=== PATIENT | female | born 1940 | race Caucasian/White ===

== ENCOUNTER 2023-03-09 09:22 | Outpatient (CLI) | payer SELFPAY ==
[2023-03-09 09:43] LABS: Basophils % 0.2 %; Eosinophils # 0.1 10^3/uL (0.0-0.8); Eosinophils % 0.5 %; Hematocrit 41.4 % (37.0-47.0); Hemoglobin 13.3 g/dL (11.5-15.3); Lymphocytes # 0.7 10^3/uL (0.8-4.8); Lymphocytes % 5.7 %; Mean Corpuscular HGB Conc 32.1 g/dL (30.0-36.0); Mean Corpuscular Volume 93.2 fl (81-99); Mean Platelet Volume 9.6 fL (7.4-10.4); Monocytes # 0.8 10^3/uL (0.2-0.9); Monocytes % 6.2 %; Neutrophils % 86.7 %; Nucleated Red Blood Cells % 0 %; Platelet Count 539 10^3/cmm (130-400); Red Blood Count 4.44 10^6/uL (4.1-5.3); Red Cell Distribution Width 12.9 % (12.1-15.1); White Blood Count 12.4 10^3/uL (4.0-10.0)
[2023-03-09 10:17] LABS: Estmated Average Glucose 117; Hemoglobin A1C 5.7 % (4.0-6.0)
[2023-03-09 10:39] LABS: 25 Hydroxy Vitamin D 35 ng/mL (30-100); Alanine Aminotransferase 14 U/L (0-33); Albumin Level 3.5 g/dL (3.5-5.2); Alkaline Phosphatase 194 U/L (35-105); Anion Gap 13.4 (5-19); Aspartate Amino Transferase 20 U/L (0-32); Blood Urea Nitrogen 18 mg/dL (8-23); Calcium 8.7 mg/dL (8.5-10.5); Carbon Dioxide 33 mmol/L (22-29); Chloride 91 mmol/L (98-107); Chol HDL Ratio 3.58 mg/dL (0.0-4.40); Cholesterol 161 mg/dL (0-200); Globulin 2.6 g/dL (1.3-4.6); Glucose 153 mg/dL (65-115); HDL Cholesterol 45 mg/dL (60-100); LDL Cholesterol Calculated 92 mg/dL (50-129); LDL HDL Ratio 2.04 RATIO (0.00-3.22); Magnesium 1.7 mg/dL (1.7-2.3); Osmolality Calculated 283 mOsm/kg (285-295); Potassium 3.4 mmol/L (3.5-5.1); Sodium 134 mmol/L (136-145); Thyroid Stimulating Hormone 1.67 uIU/mL (0.27-4.20); Total Bilirubin 0.8 mg/dL (0.15-1.2); Total Protein 6.1 g/dL (6.6-8.7); Triglycerides 121 mg/dL (0-150)
== END 2023-03-09 09:23 | disposition home or self-care (01) ==
LOC: LAB 09:24
PROVIDERS: Visit Provider Family Medicine
DX: I10 Essential (primary) hypertension (principal); D64.9 Anemia, unspecified; E55.9 Vitamin D deficiency, unspecified; E11.9 Type 2 diabetes mellitus without complications; E78.5 Hyperlipidemia, unspecified; Z13.29 Encounter for screening for other suspected endocrine disorder
CPT/HCPCS: 80053; 80061; 82306; 83036; 83735; 84443; 85025

== ENCOUNTER 2023-03-09 13:58 | Emergency (ER) | payer MEDICARE, SELFPAY ==
[2023-03-09 14:12] VITALS: BP 186/75; PULSE 74; RESP 18; TEMP 36.4; O2SAT 97; BMI 20.5
--- NOTE | 2023-03-09 14:13 | XR_ITS ---
WS: [id number] EXAMINATION: XR hip RT 2-3V wo/w pel* [id number] REASON FOR EXAM: fall hip pain, hx of pelvic fracture COMPARISON: None available. ORDER DATE: 03/09/2023 2:13 PM TECHNIQUE: 2 views right hip. X-RAY FINDINGS: There are no fractures or dislocations. Minor osteoarthritis XR/XR hip RT 2-3V wo/w pel* [id number] IMPRESSION: 1. No fractures or dislocations of the right hip. 2. Minor osteoarthritis
--- NOTE | 2023-03-09 14:19 | PC.PHAR ---
pt is [facility] states the pt only takes the medications entered and states the pt had am meds today
--- NOTE | 2023-03-09 14:36 | ED_ITS ---
HPI - Fall General: Chief Complaint: Fall Stated Complaint: rt hip and femur pain post fall Time Seen by Provider: 03/09/23 14:10 History of Present Illness: Presents from alf with a fall she had 2 days ago. Patient complaining of right femur and hip pain. Patient does have a history of a right pelvis fracture. Patient has dementia but is alert and oriented to her name birthday and date. Patient currently rates her pain a 6 out of 10. Patient states she is walking down the [place] her leg gave out and she landed on her right side. Patient denies hitting her head or loss of consciousness. Pain is worse with movement. Review of Systems General: Reports: 10 or more systems reviewed and unremarkable except in HPI and below Physical Exam Const: COMMON NORMALS: no acute distress, average body habitus, no limitations, healthy appearing, alert and well nourished HENMT: COMMON NORMALS: normocephalic, atraumatic, hearing grossly normal bilaterally, external ears normal, Normal external nose present and moist oral mucous membranes HEAD & SCALP: normocephalic and atraumatic NOSE: Normal external nose present EXTERNAL EAR: Yes external ears normal Eye: COMMON NORMALS: Equal, round and reactive pupils present, EOMs intact bilaterally, conjunctivae normal and no scleral icterus CONJUNCTIVA: Yes conjunctivae normal PUPIL: Yes Equal, round and reactive pupils present Neck/C-Spine: COMMON NORMALS: full ROM, no lymphadenopathy, supple, no meningeal signs, no JVD and Thyroid normal THYROID: Thyroid normal Chest: COMMONS NORMALS: normal inspection of the chest and normal palpation of entire chest wall Resp: COMMON NORMALS: normal respiratory effort, No retractions, No use of accessory muscles and clear to auscultation bilaterally AUSCULTATION: clear to auscultation bilaterally Cardio: COMMON NORMALS: no JVD, regular rate, regular rhythm, S1 normal heart sound present, S2 normal heart sound present, No gallops present (Cardio), No clicks present (Cardio), No murmurs present (Cardio) and No rub (Cardio) RATE: regular rate RHYTHM: regular rhythm HEART SOUNDS: S1 normal heart sound present and S2 normal heart sound present GI: COMMON NORMALS: Normal to inspection, nondistended, normoactive bowel sounds present Extremity: NARRATIVE EXTREMITY EXAM: Pain with palpation over right hip region. No obvious deformity shortening crepitus. Neuro: SENSORIUM/ORIENTATION: Yes alert MENINGEAL SIGNS: Yes no meningeal signs Course Vital Signs: Vital signs: Vital Signs Temperature 97.5 F L 03/09/23 14:12 Pulse Rate 86 03/09/23 17:46 Respiratory Rate 18 03/09/23 14:12 Blood Pressure 163/69 03/09/23 17:46 Pulse Oximetry 90 03/09/23 17:46 Oxygen Delivery Me thod Room Air 03/09/23 14:12 MDM - Fall Medical Decision Making Patient presents to the ER by EMS with complaints of fall with right hip pain. Patient had physical exam and x-rays that were performed hip and pelvis x-ray was read off as no fractures or dislocations however we went ahead and did a hip CT which showed multiple fractures of the pelvis we got a pelvis CT which again showed these fractures and multiple ones were comminuted displaced and there was some intramuscular bleeding noted. Dr. Brown was consulted who said we do not take care of these Pelvic fractures here secondary to trauma and she needs to be transferred to a trauma center. [facility] was called were Dr. Yao excepted her for further evaluation and treatment. Patient will be sent by ground. Differential Diagnosis Unlikely syncope, dislocation of shoulder region, fracture of wrist, compression fracture, concussion with loss of consciousness or concussion without loss of consciousness Medical Records I reviewed the patient's medical records. Lab Data I reviewed the patient's lab results. 03/09/23 14:33 03/09/23 14:33 Radiology Impressions Hip/Pelvis X-Ray 03/09/23 14:13 IMPRESSION: 1. No fractures or dislocations of the right hip. 2. Minor osteoarthritis Hip CT 03/09/23 16:00 IMPRESSION: 1. Comminuted displaced right iliac bone fracture. 2. Comminuted displaced proximal right superior pubic ramus fracture. 3. Comminuted displaced right inferior pubic ramus fracture. Pelvis CT 03/09/23 16:25 IMPRESSION: 1. Comminuted displaced right iliac bone fracture. 2. Comminuted displaced proximal right superior pubic ramus fracture. 3. Comminuted displaced right inferior pubic ramus fracture. 4. Mildly displaced fracture in the distal left superior pubic ramus and pubic symphysis. Chest X-Ray 03/09/23 16:41 IMPRESSION: Unremarkable frontal portable chest x-ray. Laboratory Results WBC 14.5 10^3/uL (4.0-10.0) H 03/09/23 14:33 RBC 4.18 10^6/uL (4.1-5.3) 03/09/23 14:33 Hgb 12.3 g/dL (11.5-15.3) 03/09/23 14:33 Hct 38.3 % (37.0-47.0) 03/09/23 14:33 MCV 91.6 fl (81-99) 03/09/23 14:33 MCH 29.4 pg (28.0-34.0) 03/09/23 14:33 MCHC 32.1 g/dL (30.0-36.0) 03/09/23 14:33 RDW 12.8 % (12.1-15.1) 03/09/23 14:33 Plt Count 536 10^3/cmm (130-400) H 03/09/23 14:33 MPV 9.8 fL (7.4-10.4) 03/09/23 14:33 Neut % (Auto) 81.3 % 03/09/23 14:33 Lymph % (Auto) 8.4 % 03/09/23 14:33 [place] % (Auto) 8.4 % 03/09/23 14:33 Eos % (Auto) 0.6 % 03/09/23 14:33 Baso % (Auto) 0.2 % 03/09/23 14:33 Neut # (Auto) 11.77 10^3/uL (1.8-7.7) H 03/09/23 14:33 Lymph # (Auto) 1.2 10^3/uL (0.8-4.8) 03/09/23 14:33 [place] # (Auto) 1.2 10^3/uL (0.2-0.9) H 03/09/23 14:33 Eos # (Auto) 0.1 10^3/uL (0.0-0.8) 03/09/23 14:33 Baso # (Auto) 0.0 10^3/uL (0.0-0.1) 03/09/23 14:33 Nucleated RBC % (auto) 0 % 03/09/23 14:33 Nucleated RBCs # 0.0 /100WBC 03/09/23 14:33 PT 14.70 SECONDS (12.1-14.9) 03/09/23 14:33 INR 1.11 (0.8-1.2) 03/09/23 14:33 Sodium 133 mmol/L (136-145) L 03/09/23 14:33 Potassium 3.3 mmol/L (3.5-5.1) L 03/09/23 14:33 Chloride 92 mmol/L (98-107) L 03/09/23 14:33 Carbon Dioxide 33 mmol/L (22-29) H 03/09/23 14:33 Anion Gap 11.3 (5-19) 03/09/23 14:33 BUN 19 mg/dL (8-23) 03/09/23 14:33 Creatinine 0.8 mg/dL (0.5-0.9) 03/09/23 14:33 GFR Calculation Not Reportable 03/09/23 14:33 Glucose 103 mg/dL (65-115) 03/09/23 14:33 Calculated Osmolality 279 mOsm/kg (285-295) L 03/09/23 14:33 Calcium 8.9 mg/dL (8.5-10.5) 03/09/23 14:33 Total Bilirubin 0.6 mg/dL (0.15-1.2) 03/09/23 14:33 AST 18 U/L (0-32) 03/09/23 14:33 ALT 15 U/L (0-33) 03/09/23 14:33 Alkaline Phosphatase 192 U/L (35-105) H 03/09/23 14:33 Total Protein 6.4 g/dL (6.6-8.7) L 03/09/23 14:33 Albumin 3.4 g/dL (3.5-5.2) L 03/09/23 14:33 Globulin 3.0 g/dL (1.3-4.6) 03/09/23 14:33 Urine Color Yellow (Yellow) 03/09/23 16:51 Urine Appearance Clear (CLEAR) 03/09/23 16:51 Urine pH 7 (5-7) 03/09/23 16:51 Ur Specific [place] 1.010 (1.005-1.030) 03/09/23 16:51 Urine Protein Neg (Negative) 03/09/23 16:51 Urine Glucose (UA) Norm (Normal) 03/09/23 16:51 Urine Ketones Negative (Negative) 03/09/23 16:51 Urine Blood Neg (Negative) 03/09/23 16:51 Urine Nitrate Negative (Negative) 03/09/23 16:51 Urine Bilirubin Neg (Negative) 03/09/23 16:51 Urine Urobilinogen 1 mg/dL (Negative) H 03/09/23 16:51 Ur Leukocyte Esterase Negative (Negative) 03/09/23 16:51 Blood Type A Positive 03/09/23 17:08 Rho(D) Type Positive 03/09/23 17:08 Antibody Screen Negative 03/09/23 17:08 EKG Data EKG 1: I personally reviewed and interpreted this EKG as follows: EKG interpretation date: 03/09/23 EKG interpretation time: 17:11 Prior EKG tracings: not available for review Interpretation: EKG showed sinus rhythm with occasional PVC, ventricular rate of 96 bpm, AK interval 137, QRS duration 80, QTc 418, Q waves in V1 V2. Discharge Plan Discharge Patient Disposition: Xfer Short-Term Hosp Clinical Impression: Multiple pelvic fractures, Fall Condition: Stable Prescriptions: No Action acetaminophen 325 mg Tablet 650 mg PO Q6H PRN (Reason: Pain) Ultram 50 mg Tablet 50 mg PO QID Rx Instructions: @08:00,12:00,16:00,20:00 lisinopril 5 mg Tablet 5 mg PO DAILY@08 Zoloft 50 mg Tablet 50 mg PO DAILY@08 Coding Level of Care Code ED Product Inspection Supervisor for Marii Garcia
[2023-03-09] MEDS: ondansetron 2 mg/ML SDV 2 mL 4 MG IVP (14:48)
[2023-03-09] MEDS: morphine 4 mg/mL SDV 1 mL IVP (14:48)
[2023-03-09 14:55] VITALS: BP 175/79; PULSE 64; O2SAT 95
[2023-03-09 15:50] VITALS: BP 189/87; PULSE 73; O2SAT 99
--- NOTE | 2023-03-09 16:00 | CTR_ITS ---
PROCEDURE INFORMATION: Exam: CT Right Lower Extremity Without Contrast, Hip Exam date and time: 03/09/2023 4:12 PM Age: 82 years old Clinical indication: Injury or trauma; Fall; Blunt trauma; Hip; Right; Additional info: Fall pain TECHNIQUE: Imaging protocol: CT of the right lower extremity without contrast was performed. Exam focused on the hip. Radiation optimization: All CT scans at this facility use at least one of these dose optimization techniques: automated exposure control; mA and/or kV adjustment per patient size (includes targeted exams where dose is matched to clinical indication); or iterative reconstruction. REPORTING DATA: Count of CT and Cardiac NM exams in prior 12 months: This patient has received 0 known CTs and 0 known cardiac nuclear medicine studies in the 12 months prior to the current study. COMPARISON: CR XR hip RT 2-3V wo/w pel* [id number] 03/09/2023 2:24 PM RADIATION DOSE METRICS: Total DLP (mGy-cm): 249 FINDINGS: Bones/joints: Comminuted impacted and displaced fracture in the right iliac bone which extends to the anterior margin of the right sacroiliac joint. Displaced comminuted fracture through the base of the right superior pubic ramus. Displaced comminuted overriding fracture of the right inferior pubic ramus. The right hip joint and proximal femur are intact. Soft tissues: Small amount of soft tissue hemorrhage surrounding the right pubic rami and right iliac fractures. CT/CT hip RT wo con* [id number] IMPRESSION: 1. Comminuted displaced right iliac bone fracture. 2. Comminuted displaced proximal right superior pubic ramus fracture. 3. Comminuted displaced right inferior pubic ramus fracture.
--- NOTE | 2023-03-09 16:25 | CTR_ITS ---
PROCEDURE INFORMATION: Exam: CT Pelvis Without Contrast; Skeletal Exam date and time: 03/09/2023 4:16 PM Age: 82 years old Clinical indication: Injury or trauma; Fall; Blunt trauma (contusions or hematomas); Other: Entire right; Additional info: Fall pain TECHNIQUE: Imaging protocol: Computed tomography of the pelvis without contrast. Exam focused on the skeleton. Radiation optimization: All CT scans at this facility use at least one of these dose optimization techniques: automated exposure control; mA and/or kV adjustment per patient size (includes targeted exams where dose is matched to clinical indication); or iterative reconstruction. REPORTING DATA: Count of CT and Cardiac NM exams in prior 12 months: This patient has received 0 known CTs and 0 known cardiac nuclear medicine studies in the 12 months prior to the current study. COMPARISON: CR XR hip RT 2-3V wo/w pel* [id number] 03/09/2023 2:24 PM RADIATION DOSE METRICS: Total DLP (mGy-cm): 318 FINDINGS: Bones/joints: Comminuted impacted and displaced fracture in the right iliac bone which extends from the superior tip to the anterior margin of the right sacroiliac joint. Displaced comminuted fracture through the base of the right superior pubic ramus. Displaced comminuted overriding fracture of the right inferior pubic ramus. The right hip joint and proximal femur are intact. Mildly displaced fracture in the distal left superior pubic ramus extending into the pubic symphysis. Soft tissues: Soft tissue hemorrhage surrounding the right pubic rami and right iliac fractures. Intramuscular hemorrhage in the right iliacus muscle. CT/CT bony pelvis [id number] IMPRESSION: 1. Comminuted displaced right iliac bone fracture. 2. Comminuted displaced proximal right superior pubic ramus fracture. 3. Comminuted displaced right inferior pubic ramus fracture. 4. Mildly displaced fracture in the distal left superior pubic ramus and pubic symphysis.
--- NOTE | 2023-03-09 16:41 | XR_ITS ---
WS: [id number] EXAMINATION: XR chest 1V portable [id number] REASON FOR EXAM: FALL, PELVIS FRACTURE COMPARISON: None available. ORDER DATE: 03/09/2023 4:41 PM TECHNIQUE: A single, portable frontal chest x-ray was obtained. X-RAY FINDINGS: The lungs are clear. Pleural spaces are clear. No pleural effusions or pneumothorax. Cardiomediastinal silhouette is unremarkable except for atherosclerotic aortic change No evidence for pulmonary edema. Soft tissue and osseous structures are unremarkable. No tubes or lines are present. XR/XR chest 1V portable [id number] IMPRESSION: Unremarkable frontal portable chest x-ray.
[2023-03-09 16:49] VITALS: BP 194/92; PULSE 115; O2SAT 99
[2023-03-09 16:53] LABS: Basophils % 0.2 %; Eosinophils # 0.1 10^3/uL (0.0-0.8); Eosinophils % 0.6 %; Hematocrit 38.3 % (37.0-47.0); Hemoglobin 12.3 g/dL (11.5-15.3); Lymphocytes # 1.2 10^3/uL (0.8-4.8); Lymphocytes % 8.4 %; Mean Corpuscular HGB Conc 32.1 g/dL (30.0-36.0); Mean Corpuscular Hemoglobin 29.4 pg (28.0-34.0); Mean Corpuscular Volume 91.6 fl (81-99); Mean Platelet Volume 9.8 fL (7.4-10.4); Monocytes # 1.2 10^3/uL (0.2-0.9); Monocytes % 8.4 %; Neutrophils # 11.77 10^3/uL (1.8-7.7); Neutrophils % 81.3 %; Nucleated Red Blood Cells % 0 %; Platelet Count 536 10^3/cmm (130-400); Red Blood Count 4.18 10^6/uL (4.1-5.3); Red Cell Distribution Width 12.8 % (12.1-15.1); White Blood Count 14.5 10^3/uL (4.0-10.0)
[2023-03-09 17:00] LABS: Add Urine Microscopic? NO; Charge for UA Resulting for Rev
[2023-03-09 17:01] LABS: Urine Appearance Clear (CLEAR); Urine Color Yellow (Yellow)
[2023-03-09 17:02] LABS: Bilirubin Urine Neg (Negative); Blood Urine Neg (Negative); Glucose Urine UA Norm (Normal); Ketones Urine Negative (Negative); Leukocyte Esterase Urine Negative (Negative); Nitrate Urine Negative (Negative); Protein Urine Neg (Negative); Urobilinogen Urine 1 mg/dL (Negative); pH Urine 7 (5-7)
[2023-03-09 17:03] LABS: INR 1.11 (0.8-1.2)
[2023-03-09 17:06] LABS: Alanine Aminotransferase 15 U/L (0-33); Albumin Level 3.4 g/dL (3.5-5.2); Alkaline Phosphatase 192 U/L (35-105); Anion Gap 11.3 (5-19); Aspartate Amino Transferase 18 U/L (0-32); Blood Urea Nitrogen 19 mg/dL (8-23); Calcium 8.9 mg/dL (8.5-10.5); Carbon Dioxide 33 mmol/L (22-29); Chloride 92 mmol/L (98-107); Glucose 103 mg/dL (65-115); Osmolality Calculated 279 mOsm/kg (285-295); Potassium 3.3 mmol/L (3.5-5.1); Sodium 133 mmol/L (136-145); Total Bilirubin 0.6 mg/dL (0.15-1.2); Total Protein 6.4 g/dL (6.6-8.7)
--- NOTE | 2023-03-09 17:11 | ECG_ITS ---
[facility] Test Date: 2023-03-09 Pat Name: Vickie Dunn Department: Room: Gender: Female Mathematical Sciences Professor: : 1940 Requested By: Dennis Blancas Order Number: [id number] Alena MD: Efe Ramirez M.D. Measurements Intervals [place] Rate: 96 P: 74 IN: 137 QRS: 4 QRSD: 80 T: 57 QT: 364 QTc: 462 Interpretive Statements SINUS RHYTHM WITH OCCASIONAL SUPRAVENTRICULAR PREMATURE COMPLEXES SEPTAL MYOCARDIAL INFARCTION , PROBABLY OLD [40+ ms Q WAVE IN V1/V2] No previous ECG available for comparison Electronically Signed On 03-10-2023 8:45:19 CDT by Efe Ramirez M.D. [email or web address]
[2023-03-09] MEDS: LORazepam 2 mg/mL INJ 1 mL 1 MG IVP (17:13)
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
[2023-03-09 17:46] VITALS: BP 163/69; PULSE 86; O2SAT 90
--- NOTE | 2023-03-09 18:07 | PC.NURSE ---
PATIENT DAUGHTER VERBALIZED TO THIS NURSE AND TO AGUSTO HOUSER RN THAT SHE IS OK WITH PATIENT TRANSFER TO [facility].
[2023-03-09 19:40] VITALS: BP 150/71; PULSE 87; O2SAT 94
--- NOTE | 2023-03-09 19:50 | PC.NURSE ---
Daughter contacted with update on transfer.
== END 2023-03-09 19:46 | disposition short-term general hospital (02) ==
PROVIDERS: Emergency Provider Emergency Medicine
DX: S32.82XA Multiple fractures of pelvis without disruption of pelvic ring, initial encounter for closed fracture (principal); F03.90 Unspecified dementia, unspecified severity, without behavioral disturbance, psychotic disturbance, mood disturbance, and anxiety; W18.39XA Other fall on same level, initial encounter
CPT/HCPCS: 36415; 51702; 71045; 72192; 73502; 73700; 80053; 81003; 85025; 85610; 86850; 86900; 93005; 96374; 96375; 99285; J2060; J2270; J2405